=== PATIENT | female | born 1970 | race Caucasian/White ===

== ENCOUNTER 2017-10-14 23:24 | Emergency (ER) | payer SELFPAY ==
[2017-10-14 23:25] VITALS: BP 147/91; PULSE 90; RESP 16; TEMP 36.8; O2SAT 99; BMI 35.4
--- NOTE | 2017-10-14 23:42 | ED.DCSUM_ITS ---
- ER Visit Summary Date of Service: 10/14/17 Chief Complaint: Wound check History of Present Illness: The patient is a 47 F presents to the emergency department for wound check. The patient was getting out of her vehicle. She struck the back of her right leg against a stair. She had mild bleeding. She did place some Neosporin and a bandage. He was doing well but over the past 24 hours, to begin to have some increasing redness. She denies any drainage. She has no history of immunosuppression. She is unsure of last tetanus. Physical Examination: Exam is relatively unremarkable. Patient has abrasion on the posterior right ankle. There is approximately 8 cm of surrounding cellulitis. There is no active drainage. There is no abscess. There is no streaking. There is no lymphangitis. There is no crepitus to palpation. Test Results: [] Emergency Department Course and Treatment: She has superficial skin infection status post injury. The wound was cleaned and dressed. Her tetanus was updated. Bacitracin dressing was applied. The patient was started on Keflex. She was counseled on wound care and reasons to return. She will be discharged to home. Treatment Plan: [] Disposition: Discharge Impression: 1. Right ankle abrasion with cellulitis This note was generated with [employer] dictation software. It may contain incorrect words, spelling, and punctuation that were not noted in review of the chart prior to signing ED Disposition - Plan for ED Patient: Chief Complaint: Wound Instructions: ED Wound Puncture General Prescriptions: Cephalexin [Keflex] 500 mg PO Q8 #30 cap Referrals: Care Physician,No Primary [Primary Care Provider] -
[2017-10-14] MEDS: HYDROcodone Bitartrate/Apap 5/325 Tablet PO (23:43)
[2017-10-14] MEDS: Diphth,Pertuss(Acell),Tet Vac 0.5 ML Vial IM (23:44)
[2017-10-14] MEDS: Cephalexin 250 MG Capsule 500 MG PO (23:44)
[2017-10-14 23:48] VITALS: BP 135/70; PULSE 91; RESP 18; O2SAT 98
== END 2017-10-14 23:54 | disposition home or self-care (01) ==
LOC: ED 23:49
PROVIDERS: Emergency Provider Emergency Medicine
DX: S90.511A Abrasion, right ankle, initial encounter (principal); L03.115 Cellulitis of right lower limb; W22.8XXA Striking against or struck by other objects, initial encounter; Y93.9 Activity, unspecified; Y92.9 Unspecified place or not applicable; Y99.9 Unspecified external cause status; Z23 Encounter for immunization; Z72.0 Tobacco use
CPT/HCPCS: 90471; 90715; 99283